=== PATIENT | male | born 2005 | race Caucasian/White ===

== ENCOUNTER 2025-04-06 | Emergency (ER) | payer SELFPAY ==
[2025-04-05 23:54] VITALS: PULSE 105; RESP 18; TEMP 36.1; O2SAT 97
[2025-04-06] VITALS (42 sets, daily range): BP systolic 118–218; BP diastolic 70–142; PULSE 78–164; RESP 9–29; O2SAT 94–99
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
[2025-04-06 00:34] LABS: Abs Immature Grans 0.04 10^3/uL (0.0-0.06); Absolute Basophil Count 0.04 10^3/uL (0.0-0.2); Absolute Lymphocyte Count 1.48 10^3/uL (1.2-3.4); Absolute Monocyte Count 0.59 10^3/uL (0.1-0.8); Absolute Neutrophil Count 10.84 10^3/uL (1.2-6.7); Basophils % 0.3 %; Eosinophils % 0.2 %; HCT 44.3 % (40.0-50.0); HGB 15.2 g/dL (13.5-17.5); Immature Grans % 0.3 %; Lymphocytes % 11.4 %; MCH 29.8 pg (27.0-33.0); MCHC 34.3 % (32.0-36.0); MCV 87 fL (80-95); MPV 8.8 fL (8.0-11.0); Monocytes % 4.5 %; Neutrophils % 83.3 %; Platelet Count 324 10^3/uL (130-400); RDW 12.4 % (11.8-14.1); RDW-SD 39.5 fL; WBC 13.01 10^3/uL (4.4-10.8)
[2025-04-06 00:35] LABS: Absolute Eosinophil Count 0.03 10^3/uL (0.0-0.7)
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
[2025-04-06 00:51] LABS: ALT 72 U/L (16-63); AST 40 U/L (15-37); Albumin 4.4 g/dL (3.4-5.0); Alkaline Phosphatase 91 U/L (46-116); Anion Gap 12.6 mmol/L (3-11); BUN 13 mg/dL (7-18); Bilirubin, Total 0.3 mg/dL (0.2-1.0); CO2 23.4 mmol/L (21.0-32.0); Calcium 9.1 mg/dL (8.5-10.1); Chloride 106 mmol/L (98-107); ETHANOL BLOOD 187.9 mg/dL (<10); Estimated GFR 109.81 (mL/min/1.73m2); Glucose 114 mg/dL (74-106); Potassium 4.1 mmol/L (3.5-5.1); Sodium 142 mmol/L (136-145); Total Protein 7.9 g/dL (6.4-8.2)
[2025-04-06] MEDS: Diph,Pertuss(Acell),Tet Vac/Pf 0.5 ML SYR IM (00:57)
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
--- NOTE | 2025-04-06 01:30 | NUR.NOTE ---
PT refusing urine sample Nursing Note:
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
[2025-04-06] MEDS: Ketamine 500 MG/10 ML VIAL 190 MG IVP (02:21)
--- NOTE | 2025-04-06 02:43 | RESPIRATORY ---
4L of O2 applied during conscious sedation procedure then titrated down to room air, maintained SPO2 98% post procedure. Pt. maintained etCO2 bouncing between 30-45 through out the procedure with RR above 12. MD notified before RT left post procedure.
--- NOTE | 2025-04-06 03:25 | NUR.NOTE ---
PT refused to give urine sample Nursing Note:
--- NOTE | 2025-04-06 08:59 | NUR.NOTE ---
Accessed Pt chart to complete the patient product agreement form for [facility]
== END 2025-04-06 03:57 | disposition home or self-care (01) ==
PROVIDERS: Emergency Provider Student in an Organized Health Care Education/Training Program
DX: S02.2XXA Fracture of nasal bones, initial encounter for closed fracture (principal); S01.511A Laceration without foreign body of lip, initial encounter; S92.421A Displaced fracture of distal phalanx of right great toe, initial encounter for closed fracture; Z23 Encounter for immunization; F10.120 Alcohol abuse with intoxication, uncomplicated; Y90.6 Blood alcohol level of 120-199 mg/100 ml; Y04.0XXA Assault by unarmed brawl or fight, initial encounter; Y93.39 Activity, other involving climbing, rappelling and jumping off
CPT/HCPCS: 21337; 12011; 80053; 90471; 90715; 99152; 99285; 70450; 70486; 72125; 73660; 80320; 85025